=== PATIENT | male | born 1945 | race Caucasian/White ===

== ENCOUNTER → 2017-11-05 | Outpatient (CLI) | payer MEDICARE, MEDICAID | END | disposition home or self-care (01) | LOC: CARD 08:08 | PROVIDERS: ATTEND Psychiatry & Neurology Neurology | DX: G25.0 Essential tremor (principal) ==

== ENCOUNTER 2018-11-12 06:12 | Inpatient (IN) | payer MEDICARE, MEDICAID ==
[2018-11-12] VITALS (11 sets, daily range): BP systolic 111–177; BP diastolic 28–100
[~2018-11-12] VITALS: Ht 167.6 cm; Wt 85.3 kg
[2018-11-12] MEDS ORDERED: PREG50CA MT (07:59)
[2018-11-12] MEDS ORDERED: DICL75TA5 MT (07:59)
[2018-11-12] MEDS ORDERED: CLOP75TA16 MT (07:59)
[2018-11-12] MEDS ORDERED: FERR325T6 MT (07:59)
[2018-11-12] MEDS ORDERED: AMLO10TA80 MT (07:59)
[2018-11-12] MEDS ORDERED: FURO20TA4 MT (07:59)
[2018-11-12] MEDS ORDERED: POTA8TAB4 MT (07:59)
[2018-11-12] MEDS ORDERED: ASPI-1159 MT (07:59)
[2018-11-12] MEDS ORDERED: GLIM4TAB2 MT (07:59)
[2018-11-12] MEDS ORDERED: DOXA2TAB2 MT (07:59)
[2018-11-12] MEDS ORDERED: METF-416 MT (07:59)
[2018-11-12] MEDS ORDERED: HYDR-4009 MT (07:59)
[2018-11-12] MEDS ORDERED: LIOT5TAB8 MT (07:59)
[2018-11-12] MEDS ORDERED: ATOR40TA70 MT (07:59)
[2018-11-12] MEDS ORDERED: BENA40TA9 MT (07:59)
[2018-11-12 08:45] LABS: HEMATOCRIT 37.3 % (42.0-52.0); HEMOGLOBIN 12.6 g/dL (14.0-18.0); MEAN CORPUSCULAR HEMOGLOBIN 29.8 pg (28.0-32.0); MEAN CORPUSCULAR VOLUME 88.3 fL (80.0-94.0); PLATELET 200 x1000/uL (130-400); RED BLOOD CELL COUNT 4.22 mill/uL (4.7-6.1); RED CELL DISTRIBUTION WIDTH 13.2 % (11.6-14.6)
[2018-11-12 08:46] LABS: CHLORIDE 109 mEq/L (98-107); PARTIAL THROMBOPLASTIN TIME 29.6 sec (23.4-31.0); PROTHROMBIN TIME 10.5 sec (9.6-11.0)
[2018-11-12] MEDS ORDERED: GENTAMICIN SULF 40MG/ML 2ML VIAL ONE (08:56)
[2018-11-12] MEDS ORDERED: LIDOCAINE HCL 1% 20ML VIAL (Pyxis) INJ ONE (08:57)
[2018-11-12] MEDS ORDERED: IOHEXOL-300 100 ML BOTTLE ONE (08:57)
[2018-11-12] MEDS ORDERED: GENTAMICIN/NS IRRIGATION 500 ML IR ONE (08:57)
[2018-11-12] MEDS: GLIMEPIRIDE 2MG TABLET PO SCH (12:38)
[2018-11-12] MEDS: FINASTERIDE 5MG TABLET PO SCH (15:20)
[2018-11-12] MEDS: HYDROCODONE/ACETAMINOPHEN 5/325MG TABLET PO PRN (15:30)
[2018-11-12] MEDS: DICLOFENAC SODIUM 75MG DR (EC) TABLET PO SCH (17:23)
[2018-11-12] MEDS ORDERED: CLONIDINE 0.1MG TABLET PO PRN (18:30)
[2018-11-12] MEDS: AMLODIPINE 5MG TABLET PO SCH (20:48)
[2018-11-12] MEDS: PREGABALIN 50 MG CAPSULE PO SCH (20:48)
[2018-11-12] MEDS ORDERED: ATORVASTATIN CALCIUM 40MG TABLET PO SCH (21:00)
[2018-11-12] MEDS ORDERED: DOXAZOSIN MESYLATE 2MG TABLET PO SCH (21:00)
[2018-11-13] VITALS (9 sets, daily range): BP systolic 130–162; BP diastolic 58–83
[2018-11-13] MEDS: HYDROCODONE/ACETAMINOPHEN 5/325MG TABLET PO PRN (05:09)
[2018-11-13] MEDS: GLIMEPIRIDE 2MG TABLET PO SCH (06:18)
[2018-11-13 06:25] LABS: BASOPHILS % 0.3 % (0.0-2.0); EOSINOPHILS % 2.7 % (0.0-5.0); HEMOGLOBIN. 13.5 g/dL (14.0-18.0); LYMPHOCYTES % 16.4 % (20.0-50.0); MEAN CORPUSCULAR HEMOGLOBIN 30.5 pg (28.0-32.0); MEAN CORPUSCULAR VOLUME 88.2 fL (80.0-94.0); MEAN PLATELET VOLUME 7.5 fl (7.4-10.4); NEUTROPHILS % 68.6 % (40.0-76.0); PLATELET 201 x1000/uL (130-400); RED BLOOD CELL COUNT 4.42 mill/uL (4.7-6.1); RED CELL DISTRIBUTION WIDTH 13.4 % (11.6-14.6)
[2018-11-13 06:31] LABS: CHLORIDE 111 mEq/L (98-107)
[2018-11-13] MEDS: PREGABALIN 50 MG CAPSULE PO SCH (08:27)
[2018-11-13] MEDS: AMLODIPINE 5MG TABLET PO SCH (08:27)
[2018-11-13] MEDS: FINASTERIDE 5MG TABLET PO SCH (08:27)
[2018-11-13] MEDS: DICLOFENAC SODIUM 75MG DR (EC) TABLET PO SCH (08:28)
[2018-11-13] MEDS ORDERED: FERROUS SULFATE 325MG TABLET PO SCH (09:00)
[2018-11-13] MEDS ORDERED: DOXAZOSIN MESYLATE 2MG TABLET PO SCH (09:00)
[2018-11-13] MEDS ORDERED: BENAZEPRIL 10MG TABLET PO SCH (09:00)
[2018-11-13] MEDS ORDERED: LIOTHYRONINE SODIUM 5MCG TABLET PO SCH (09:00)
[2018-11-13] MEDS ORDERED: ASPIRIN 81MG TABLET PO SCH (09:00)
[2018-11-13] MEDS ORDERED: AMLODIPINE 10MG TABLET PO SCH (09:00)
[2018-11-13] MEDS ORDERED: CLOPIDOGREL 75MG TABLET PO SCH (09:00)
[2018-11-13] MEDS ORDERED: FUROSEMIDE 20MG TABLET PO SCH (09:00)
[2018-11-13] MEDS ORDERED: POTASSIUM CHLORIDE 8 MEQ TABLET.SA PO SCH (09:00)
== END 2018-11-13 14:51 | disposition home or self-care (01) | DRG 244 ==
LOC: CCL 06:12 → 3WST 06:13
PROVIDERS: ADMIT Internal Medicine Clinical Cardiac Electrophysiology; ATTEND Internal Medicine Clinical Cardiac Electrophysiology
PROC: 0JH606Z Insertion of Pacemaker, Dual Chamber into Chest Subcutaneous Tissue and Fascia, Open Approach (ICD-10-PCS; principal; 2018-11-12)
PROC: 02HK3JZ Insertion of Pacemaker Lead into Right Ventricle, Percutaneous Approach (ICD-10-PCS; 2018-11-12)
PROC: 02H63JZ Insertion of Pacemaker Lead into Right Atrium, Percutaneous Approach (ICD-10-PCS; 2018-11-12)
PROC: B5171ZZ Fluoroscopy of Left Subclavian Vein using Low Osmolar Contrast (ICD-10-PCS; 2018-11-12)
DX: I49.5 Sick sinus syndrome (principal); E11.51 Type 2 diabetes mellitus with diabetic peripheral angiopathy without gangrene; I10 Essential (primary) hypertension; I25.10 Atherosclerotic heart disease of native coronary artery without angina pectoris; I25.2 Old myocardial infarction
CPT/HCPCS: 33208; 36415; 71045; 75820; 80048; 85027; 93005; C1785; C1892; C1893; C1898; J1580; J2250; J2704; J3010; J3490; J7050; Q9967; A4315

== ENCOUNTER 2020-02-10 10:27 | Inpatient (IN) | payer MEDICARE, MEDICAID ==
[~2020-02-10] VITALS: Ht 165.1 cm; Wt 79.4 kg
[~2020-02-10 10:27] MED LIST: AMLO10TA80 MT; ASPI-1497 MT; ATOR40TA70 MT; BENA40TA9 MT; CLOP75TA4 MT; DICL75TA5 MT; DOXA2TAB2 MT; FERR325T6 MT; FURO20TA4 MT; GLIM4TAB36 MT; HYDR-4009 MT; LIOT5TAB11 MT; METF-416 MT; POTA8TAB4 MT; PREG50CA MT
[2020-02-10] MEDS ORDERED: NITROGLYCERIN 0.4MG TABLET SL SL PRN (11:15)
[2020-02-10] MEDS ORDERED: ASPIRIN 81MG TABLET PO ONE (11:15)
[2020-02-10 11:17] LABS: BASOPHILS % 0.2 % (0.0-2.0); EOSINOPHILS % 0.4 % (0.0-5.0); HEMATOCRIT. 24.4 % (42.0-52.0); LYMPHOCYTES % 9.6 % (20.0-50.0); MEAN CORPUSCULAR HEMOGLOBIN 28.4 pg (28.0-32.0); MEAN CORPUSCULAR VOLUME 86.3 fL (80.0-94.0); NEUTROPHILS % 82.8 % (40.0-76.0); PLATELET 132 x1000/uL (130-400); RED BLOOD CELL COUNT 2.83 mill/uL (4.7-6.1); RED CELL DISTRIBUTION WIDTH 16.3 % (11.6-14.6)
[2020-02-10 11:24] LABS: CHLORIDE 106 mEq/L (98-107)
[2020-02-10 11:27] LABS: INR 1.1; PROTHROMBIN TIME 11.9 sec (9.6-11.0)
[2020-02-10] MEDS ORDERED: MORPHINE SULFATE 4 MG/ML CPJ (NOT FOR IM USE) IV STA (11:44)
[2020-02-10] MEDS ORDERED: ONDANSETRON HCL 4MG/2ML INJ IV STA (11:44)
[2020-02-10] MEDS ORDERED: FUROSEMIDE 20MG/2ML VIAL IVP ONE (11:45)
[2020-02-10] MEDS ORDERED: ONDANSETRON HCL 4MG/2ML INJ IV PRN (12:15)
[2020-02-10] MEDS ORDERED: ACETAMINOPHEN 325MG TABLET PO PRN (12:15)
[2020-02-10] MEDS ORDERED: CLONIDINE 0.1MG TABLET PO PRN (12:15)
[2020-02-10] MEDS ORDERED: SODIUM CHLORIDE 0.45% 1,000 ML IV SCH (12:30)
[2020-02-10 12:45] LABS: CLARITY URINE CLEAR (CLEAR); COLOR URINE YELLOW (YELLOW); KETONES URINE TRACE (NEGATIVE); LEUKOCYTE ESTERASE URINE NEGATIVE (NEGATIVE); NITRITE URINE NEGATIVE (NEGATIVE); OCCULT BLOOD URINE 3+ (NEGATIVE); PROTEIN URINE TRACE (NEGATIVE); SPECIFIC GRAVITY URINE 1.024 (1.005-1.030); UROBILINOGEN URINE 0.2 E.U./dL (0.2-1.0)
[2020-02-10 13:03] LABS: *AMPHETAMINES SCREEN URINE NEGATIVE (NEGATIVE); *BARBITURATES SCREEN URINE NEGATIVE (NEGATIVE); *BENZODIAZEPINES SCREEN URINE NEGATIVE (NEGATIVE); *COCAINE SCREEN URINE NEGATIVE (NEGATIVE); METHADONE URINE SCREEN NEGATIVE (NEGATIVE)
[2020-02-10 13:04] LABS: CANNABINOID URINE SCREEN NEGATIVE (NEGATIVE); OPIATES URINE SCREEN PRESUMTIVE POSITIVE (NEGATIVE); PHENCYCLIDINE URINE SCREEN NEGATIVE (NEGATIVE)
[2020-02-10] MEDS ORDERED: IPRATROPIUM/ALBUTEROL 0.5-3(2.5)MG/3ML NEB HHN PRN (15:15)
[2020-02-10 15:26] VITALS: BP 115/54
[2020-02-10] MEDS ORDERED: PNEUMOCOCCAL 23-VAL P-SAC VAC 0.5 ML IM ONE (16:15)
[2020-02-10] MEDS: FUROSEMIDE 40MG/4ML VIAL IVP SCH (17:10)
[2020-02-10] MEDS: FERROUS SULFATE 325MG TABLET PO SCH (17:11)
[2020-02-10] MEDS: PREGABALIN 50 MG CAPSULE PO SCH (17:12)
[2020-02-10 20:00] VITALS: BP 129/56
[2020-02-10] MEDS: METOPROLOL TARTRATE 25MG TABLET PO SCH (21:08)
[2020-02-10] MEDS: MORPHINE SULFATE 2 MG/ML CPJ (NOT FOR IM USE) IV PRN (21:17)
[2020-02-10] MEDS ORDERED: INSULIN GLARGINE UD 100 UNITS/ML SYR SUBCUT SCH (22:00)
[2020-02-10] MEDS: INSULIN GLARGINE UD 100 UNITS/ML SYR SUBCUT SCH (23:53)
[2020-02-11] VITALS (16 sets, daily range): BP systolic 111–132; BP diastolic 53–109
[2020-02-11] MEDS ORDERED: DEXTROSE 50% WATER 50ML SYRINGE IV PRN (07:00)
[2020-02-11] MEDS: INSULIN LISPRO 100 UNITS/ML SUBCUT SCH ×4 (07:02→21:24)
[2020-02-11] MEDS: GLIMEPIRIDE 2MG TABLET PO SCH (07:06)
[2020-02-11] MEDS: BLOOD SUGAR DIAGNOSTIC STRIP TEST SCH ×4 (07:34→21:04)
[2020-02-11 08:19] LABS: CHLORIDE 106 mEq/L (98-107)
[2020-02-11 08:30] LABS: HDL CHOLESTEROL 49 mg/dL (40-59)
[2020-02-11 08:31] LABS: LDL CHOLESTEROL 98 mg/dL (5-100)
[2020-02-11 08:39] LABS: BASOPHILS % 0.4 % (0.0-2.0); EOSINOPHILS % 0.4 % (0.0-5.0); HEMATOCRIT. 24.5 % (42.0-52.0); HEMOGLOBIN. 8.1 g/dL (14.0-18.0); LYMPHOCYTES % 9.5 % (20.0-50.0); MEAN CORPUSCULAR VOLUME 84.9 fL (80.0-94.0); MEAN PLATELET VOLUME 7.7 fl (7.4-10.4); MONOCYTES % 6.7 % (2.0-8.0); PLATELET 125 x1000/uL (130-400); RED BLOOD CELL COUNT 2.89 mill/uL (4.7-6.1); RED CELL DISTRIBUTION WIDTH 16.7 % (11.6-14.6)
[2020-02-11] MEDS: FERROUS SULFATE 325MG TABLET PO SCH ×3 (08:40→16:50)
[2020-02-11] MEDS: PREGABALIN 50 MG CAPSULE PO SCH ×2 (08:40→16:49)
[2020-02-11] MEDS: LISINOPRIL 20MG TABLET PO SCH (08:42)
[2020-02-11] MEDS: ATORVASTATIN CALCIUM 40MG TABLET PO SCH (08:43)
[2020-02-11] MEDS: METOPROLOL TARTRATE 25MG TABLET PO SCH ×2 (08:44→21:22)
[2020-02-11] MEDS: FUROSEMIDE 40MG/4ML VIAL IVP SCH ×2 (08:44→13:39)
[2020-02-11] MEDS: CLOPIDOGREL 75MG TABLET PO SCH (08:44)
[2020-02-11] MEDS ORDERED: ASPIRIN 81MG EC TABLET PO SCH (09:00)
[2020-02-11] MEDS ORDERED: METOLAZONE 2.5MG TABLET PO SCH (09:00)
[2020-02-11] MEDS ORDERED: MIDAZOLAM HCL 2 MG/2 ML VIAL ONE (10:08)
[2020-02-11] MEDS ORDERED: LIDOCAINE HCL 1% 20ML VIAL (Pyxis) INJ ONE (10:09)
[2020-02-11] MEDS ORDERED: FENTANYL CITRATE/PF 50MCG/ML 2ML VIAL ONE (10:09)
[2020-02-11] MEDS ORDERED: IODIXANOL 320MG/ML 100 ML BOTTLE IV ONE ×2 (10:10→11:53)
[2020-02-11] MEDS ORDERED: IOHEXOL-300 100 ML BOTTLE ONE (11:36)
[2020-02-11] MEDS ORDERED: HEPARIN SODIUM 1,000 UNIT/1ML VIAL IV ONE (12:19)
[2020-02-11] MEDS ORDERED: CLOPIDOGREL 75MG TABLET ONE (12:21)
[2020-02-11] MEDS ORDERED: ATROPINE SULFATE 1MG/10ML SYR IV PRN (12:30)
[2020-02-11] MEDS ORDERED: ACETAMINOPHEN 325MG TABLET PO PRN (12:30)
[2020-02-11] MEDS: INSULIN GLARGINE UD 100 UNITS/ML SYR SUBCUT SCH (21:24)
[2020-02-12] VITALS (13 sets, daily range): BP systolic 100–127; BP diastolic 34–70
[2020-02-12] MEDS: MORPHINE SULFATE 2 MG/ML CPJ (NOT FOR IM USE) IV PRN (06:05)
[2020-02-12] MEDS: BLOOD SUGAR DIAGNOSTIC STRIP TEST SCH ×4 (06:50→20:47)
[2020-02-12] MEDS: GLIMEPIRIDE 2MG TABLET PO SCH (06:53)
[2020-02-12 08:05] LABS: BASOPHILS % 0.4 % (0.0-2.0); EOSINOPHILS % 0.5 % (0.0-5.0); HEMATOCRIT. 23.2 % (42.0-52.0); HEMOGLOBIN. 7.8 g/dL (14.0-18.0); LYMPHOCYTES % 17.6 % (20.0-50.0); MEAN CORPUSCULAR HEMOGLOBIN 28.3 pg (28.0-32.0); MEAN CORPUSCULAR VOLUME 84.7 fL (80.0-94.0); MONOCYTES % 8.4 % (2.0-8.0); NEUTROPHILS % 73.1 % (40.0-76.0); RED BLOOD CELL COUNT 2.74 mill/uL (4.7-6.1); RED CELL DISTRIBUTION WIDTH 16.7 % (11.6-14.6)
[2020-02-12] MEDS: FERROUS SULFATE 325MG TABLET PO SCH ×3 (08:16→17:05)
[2020-02-12] MEDS: INSULIN LISPRO 100 UNITS/ML SUBCUT SCH ×4 (08:17→21:09)
[2020-02-12] MEDS: ASPIRIN 325MG TABLET PO SCH (08:18)
[2020-02-12] MEDS: PREGABALIN 50 MG CAPSULE PO SCH ×2 (08:18→17:05)
[2020-02-12] MEDS: CLOPIDOGREL 75MG TABLET PO SCH (08:19)
[2020-02-12] MEDS: METOPROLOL TARTRATE 25MG TABLET PO SCH ×2 (08:19→21:06)
[2020-02-12] MEDS: LISINOPRIL 20MG TABLET PO SCH (08:19)
[2020-02-12] MEDS: LIOTHYRONINE SODIUM 5MCG TABLET PO SCH (08:20)
[2020-02-12] MEDS: DOXAZOSIN MESYLATE 2MG TABLET PO SCH (08:20)
[2020-02-12] MEDS: ATORVASTATIN CALCIUM 40MG TABLET PO SCH (08:20)
[2020-02-12] MEDS: FUROSEMIDE 40MG/4ML VIAL IVP SCH (08:21)
[2020-02-12] MEDS ORDERED: CLOPIDOGREL 75MG TABLET PO SCH (09:00)
[2020-02-12] MEDS ORDERED: POTASSIUM CHLORIDE 10MEQ TABLET SR PO SCH (09:00)
[2020-02-12 09:32] LABS: MEAN PLATELET VOLUME 7.5 fl (7.4-10.4); PLATELET 111 x1000/uL (130-400)
[2020-02-12 10:17] LABS: PHOSPHORUS 3.5 mg/dL (2.5-4.9)
[2020-02-12] MEDS ORDERED: INDOMETHACIN 25MG CAPSULE PO NR (11:30)
[2020-02-12] MEDS: INSULIN GLARGINE UD 100 UNITS/ML SYR SUBCUT SCH (21:08)
[2020-02-13] VITALS (17 sets, daily range): BP systolic 97–145; BP diastolic 51–104
[2020-02-13 06:28] LABS: BASOPHILS % 0.5 % (0.0-2.0); EOSINOPHILS % 1.2 % (0.0-5.0); HEMATOCRIT. 22.1 % (42.0-52.0); HEMOGLOBIN. 7.3 g/dL (14.0-18.0); LYMPHOCYTES % 20.9 % (20.0-50.0); MEAN CORPUSCULAR HEMOGLOBIN 28.2 pg (28.0-32.0); MEAN CORPUSCULAR VOLUME 84.9 fL (80.0-94.0); MEAN PLATELET VOLUME 7.7 fl (7.4-10.4); MONOCYTES % 10.6 % (2.0-8.0); NEUTROPHILS % 66.8 % (40.0-76.0); PLATELET 102 x1000/uL (130-400); RED CELL DISTRIBUTION WIDTH 16.9 % (11.6-14.6)
[2020-02-13] MEDS: BLOOD SUGAR DIAGNOSTIC STRIP TEST SCH ×3 (06:41→17:33)
[2020-02-13] MEDS: GLIMEPIRIDE 2MG TABLET PO SCH (07:06)
[2020-02-13] MEDS: LISINOPRIL 20MG TABLET PO SCH (08:23)
[2020-02-13] MEDS: PREGABALIN 50 MG CAPSULE PO SCH ×2 (08:23→17:37)
[2020-02-13] MEDS: CLOPIDOGREL 75MG TABLET PO SCH (08:24)
[2020-02-13] MEDS: FERROUS SULFATE 325MG TABLET PO SCH ×3 (08:24→17:37)
[2020-02-13] MEDS: LIOTHYRONINE SODIUM 5MCG TABLET PO SCH (08:24)
[2020-02-13] MEDS: DOXAZOSIN MESYLATE 2MG TABLET PO SCH (08:24)
[2020-02-13] MEDS: METOPROLOL TARTRATE 25MG TABLET PO SCH (08:24)
[2020-02-13] MEDS: FUROSEMIDE 40MG/4ML VIAL IVP SCH (08:25)
[2020-02-13] MEDS: INSULIN LISPRO 100 UNITS/ML SUBCUT SCH ×3 (08:28→17:37)
[2020-02-13] MEDS: ATORVASTATIN CALCIUM 40MG TABLET PO SCH (08:37)
[2020-02-13] MEDS ORDERED: POTASSIUM CHLORIDE 20MEQ/PACKET PO NR (10:00)
[2020-02-13 10:06] LABS: PHOSPHORUS 3.5 mg/dL (2.5-4.9)
[2020-02-13] MEDS ORDERED: FUROSEMIDE 40MG/4ML VIAL IVP NR (12:00)
[2020-02-13] MEDS: ASPIRIN 325MG TABLET PO SCH (13:12)
[2020-02-14] MEDS ORDERED: FUROSEMIDE 40MG TABLET PO SCH (09:00)
== END 2020-02-13 18:21 | disposition home or self-care (01) | DRG 246 ==
LOC: ER 10:27 → 8WST 12:10 → EDBEDREQ 12:16 → EDBEDREQTM 12:16 → ENRESERV 12:32 → 3WST 02-11 13:32
PROVIDERS: ADMIT Internal Medicine Nephrology; ATTEND Internal Medicine Nephrology
PROC: 027034Z Dilation of Coronary Artery, One Artery with Drug-eluting Intraluminal Device, Percutaneous Approach (ICD-10-PCS; 2020-02-11)
PROC: 4A023N7 Measurement of Cardiac Sampling and Pressure, Left Heart, Percutaneous Approach (ICD-10-PCS; 2020-02-11)
PROC: B2111ZZ Fluoroscopy of Multiple Coronary Arteries using Low Osmolar Contrast (ICD-10-PCS; 2020-02-11)
PROC: 30233N1 Transfusion of Nonautologous Red Blood Cells into Peripheral Vein, Percutaneous Approach (ICD-10-PCS; principal; 2020-02-13)
DX: I21.4 Non-ST elevation (NSTEMI) myocardial infarction (principal); I50.33 Acute on chronic diastolic (congestive) heart failure; J96.00 Acute respiratory failure, unspecified whether with hypoxia or hypercapnia; I13.0 Hypertensive heart and chronic kidney disease with heart failure and stage 1 through stage 4 chronic kidney disease, or unspecified chronic kidney disease; N17.9 Acute kidney failure, unspecified; I25.10 Atherosclerotic heart disease of native coronary artery without angina pectoris; I49.5 Sick sinus syndrome; E78.5 Hyperlipidemia, unspecified; E11.22 Type 2 diabetes mellitus with diabetic chronic kidney disease; D64.9 Anemia, unspecified; Z20.828 Contact with and (suspected) exposure to other viral communicable diseases; N18.9 Chronic kidney disease, unspecified; S20.219A Contusion of unspecified front wall of thorax, initial encounter; G31.9 Degenerative disease of nervous system, unspecified; E87.6 Hypokalemia; W18.30XA Fall on same level, unspecified, initial encounter; Y93.89 Activity, other specified; Y99.8 Other external cause status; Z95.0 Presence of cardiac pacemaker; Z95.5 Presence of coronary angioplasty implant and graft; I25.2 Old myocardial infarction; Z79.84 Long term (current) use of oral hypoglycemic drugs; Z79.02 Long term (current) use of antithrombotics/antiplatelets; Z79.899 Other long term (current) drug therapy; Y92.098 Other place in other non-institutional residence as the place of occurrence of the external cause
CPT/HCPCS: 36415; 71045; 80048; 80053; 80061; 80305; 81003; 82962; 83036; 83735; 83880; 84100; 84443; 84484; 85025; 85347; 86850; 86900; 86920; 87635; 90732; 92928; 93005; 93306; 93454; 93970; 99285; C1725; C1760; C1769; C1874; C1887; C1893; J1644; J1815; J1940; J2250; J2270; J2405; J3010; J3490; P9016; Q9967